=== PATIENT | male | born 1975 | race African-American/Black ===

== ENCOUNTER 2016-08-08 09:03 | Emergency (ER) | payer SELFPAY ==
[~2016-08-08] VITALS: Ht 182.9 cm; Wt 83.9 kg
--- NOTE | 2016-08-08 09:30 | NUR ---
PT TAKEN TO CT VIA ANIKA
--- NOTE | 2016-08-08 09:30 | NUR ---
PT TO ED ROOM 12 :BIB RA C/O FEELING SLEEPY FROM [employer] [employer], MARIJUANA SMELL NOTED ON BREATH. SIDE RAILS UP. HOB ELEVATED. CONNECTED TO MONITOR. SEEN AND EVALUATED BY ED PROVIDER.
--- NOTE | 2016-08-08 10:50 | NUR ---
Patient is resting comfortably in bed with eyes closed. Easily aroused. VSS.
--- NOTE | 2016-08-08 11:28 | NUR ---
Patient is resting comfortably in bed with eyes closed. Easily aroused. VSS
--- NOTE | 2016-08-08 13:07 | NUR ---
Patient is resting comfortably in bed with eyes closed. Easily aroused. VSS
--- NOTE | 2016-08-08 13:44 | NUR ---
Patient is resting comfortably in bed with eyes closed. Easily aroused. VSS.
--- NOTE | 2016-08-08 15:32 | NUR ---
Patient discharged to home in stable condition. Written and verbal after care instructions given. Patient verbalizes understanding of instruction.IV removed. Catheter intact and site benign. Pressure and 4x4 applied to site. No bleeding noted. nad. vs wnl. ambulatory with a steady gait.
[2016-08-08 15:33] VITALS: BP 116/65
== END 2016-08-08 15:33 | disposition home or self-care (01) ==
LOC: ER 09:05
DX: F19.10 Other psychoactive substance abuse, uncomplicated (principal); R51 Headache; R79.89 Other specified abnormal findings of blood chemistry
CPT/HCPCS: 36415; 70450-TC; 82962-TC; A4606; G0480; Z7610